=== PATIENT | male | born 1995 ===

== ENCOUNTER 2016-06-23 16:09 | Emergency (ER) | payer SELFPAY ==
[2016-06-23 16:58] LABS: SPECIFIC GRAVITY 1.015 (1.001-1.030); URINE BILIRUBIN NEGATIVE (NEGATIVE); URINE BLOOD NEGATIVE (NEGATIVE); URINE GLUCOSE (UA) NEGATIVE (NEGATIVE); URINE LEUKOCYTE ESTERASE NEGATIVE (NEGATIVE); URINE NITRITE NEGATIVE (NEGATIVE); URINE PROTEIN TRACE (NEGATIVE); URINE UROBILINOGEN NORMAL (0-1 mg/dl)
[2016-06-23 16:59] LABS: URINE APPEARANCE CLEAR; URINE COLOR DARK YELLOW
[2016-06-23] MEDS ORDERED: IBUPROFEN 600 MG TABLET ONE (17:09)
[2016-06-23] MEDS ORDERED: ACETAMINOPHEN 325 MG TABLET ONE (17:09)
--- NOTE | 2016-06-23 17:34 | US ---
Name: MELINDA PRADO Exam: Scrotal ultrasound Comparison: None Clinical history: Bilateral testicular pain Findings: Ultrasound of the scrotum was performed. Testicular size, shape, echogenicity and blood flow are within normal limits. Right measures 4.4 x 2.7 x 2.4 cm and left measures 4.6 x 2.9 x 2.1 cm. There is no mass, torsion or suspicious calcification. The epididymal heads are heterogeneous bilaterally and the right measures 2.2 cm and left measures 1.4 cm in greatest dimension. Multiple 9 mm and less bilateral epididymal head cysts are identified. Blood flow is increased in the epididymides bilaterally therefore epididymitis is not excluded. A small amount of scrotal fluid is identified bilaterally, right greater than left. There is no varicocele. Impression: 1. No testicular mass or torsion 2. Increased blood flow within the epididymides bilaterally. Epididymitis is not excluded. 3. Multiple 9 mm and less epididymal head cysts bilaterally.
[2016-06-23] MEDS ORDERED: CEFTRIAXONE SODIUM 250 MG VIAL ONE (18:24)
[2016-06-23] MEDS ORDERED: DOXYCYCLINE HYCLATE 100 MG TABLET ONE (18:24)
[2016-06-24 14:29] LABS: CHLAMYDIA BD Negative (Negative); N.GONORRHOEAE BD Negative (Negative); SOURCE Urine (())
== END 2016-06-23 18:50 | disposition home or self-care (01) ==
LOC: ED 16:09
DX: N45.1 Epididymitis (principal); N50.812 Left testicular pain
CPT/HCPCS: 87491; 87591; 81003; 76870; 99283 ×2; 96372; A9270 ×3; J0696